=== PATIENT | male | born 1980 | race Caucasian/White ===

== ENCOUNTER 2023-11-23 17:55 | Emergency (ER) | payer SELFPAY ==
[2023-11-23 18:26] VITALS: BP 149/95; PULSE 69; RESP 16; TEMP 98.1; BMI 28.2
== END 2023-11-23 20:25 | disposition home or self-care (01) ==
LOC: FER 17:55 → EDBD 17:55 → FER 20:25
DX: S40.912A Unspecified superficial injury of left shoulder, initial encounter (principal); V18.0XXA Pedal cycle driver injured in noncollision transport accident in nontraffic accident, initial encounter
CPT/HCPCS: 73000-TC-LT-FY; 73030-TC-LT-FY; 99283-25